=== PATIENT | female | born 1990 | race Caucasian/White ===

== ENCOUNTER 2017-07-28 09:28 | Inpatient (IN) | payer MEDICAID ==
[2017-07-28] MEDS ORDERED: KETOROLAC 30 MG INJ IV (10:05)
[2017-07-28] MEDS: ONDANSETRON 4 MG INJ IV ×2 (10:19→23:33)
[2017-07-28] MEDS: SOD CHLORIDE 0.9% 1,000 ML IV ×2 (10:20→18:23)
[2017-07-28] MEDS: morphine 4 MG/ML VIAL IV (10:20)
[2017-07-28 10:31] LABS: ADD MAN DIFF? NO
[2017-07-28 10:36] LABS: BASOPHIL # 0.1 10^3/ul (0.0-0.1); BASOPHILS % 0.5 % (0.0-2.0); EOSINOPHILS # 0.1 10^3/ul (0.0-0.5); EOSINOPHILS % 0.7 % (0.0-7.0); HEMATOCRIT 43.5 % (37.0-47.0); HEMOGLOBIN 14.7 g/dl (12.0-16.0); LYMPHOCYTES # 1.3 10^3/ul (0.8-2.9); LYMPHOCYTES % 11.9 % (15.0-51.0); MEAN CORPUSCULAR HEMOGLOBIN 30.1 pg (29.0-33.0); MEAN CORPUSCULAR HGB CONC 33.8 g/dl (32.0-37.0); MEAN PLATELET VOLUME 9.8 fl (7.4-10.4); MONOCYTE # 0.1 10^3/ul (0.3-0.9); NEUTROPHIL # 9.2 10^3/ul (1.6-7.5); NEUTROPHILS % 85.4 % (39.0-77.0); PLATELET COUNT 328 10^3/UL (140-415); RED BLOOD COUNT 4.89 10^6/ul (4.20-5.40); RED CELL DISTRIBUTION WIDTH 12.5 % (11.5-14.5)
[2017-07-28 10:36] LABS: WHITE BLOOD COUNT 10.7 10^3/ul (4.8-10.8)
[2017-07-28 10:54] LABS: ALANINE AMINOTRANSFERASE 48 IU/L (13-69); ALBUMIN 4.4 g/dl (3.3-4.9); ALBUMIN/GLOBULIN RATIO 1.29; ALKALINE PHOSPHATASE 110 IU/L (42-121); AMYLASE 73 U/L (11-123); ANION GAP 14 (8-16); ASPARTATE AMINO TRANSFERASE 36 IU/L (15-46); BILIRUBIN,INDIRECT 0.5 mg/dl (0-1.1); BILIRUBIN,TOTAL 0.5 mg/dl (0.2-1.3); BLOOD UREA NITROGEN 12 mg/dl (7-20); CALCIUM 9.2 mg/dl (8.4-10.2); CARBON DIOXIDE 28 mmol/L (21-31); CHLORIDE 102 mmol/L (97-110); CREATININE 0.63 mg/dl (0.44-1.00); GLUCOSE 102 mg/dl (70-220); LIPASE 50 U/L (23-300); POTASSIUM 4.1 mmol/L (3.5-5.1); SODIUM 140 mmol/L (135-144); TOTAL PROTEIN 7.8 g/dl (6.1-8.1)
[2017-07-28 11:01] LABS: INR 0.94; PROTIME 12.7 Sec (11.9-14.9)
[2017-07-28 11:02] LABS: PARTIAL THROMBOPLASTIN TIME 25.8 Sec (25.0-35.0)
[2017-07-28] MEDS: HYDROmorphONE 1 MG/ML SYG IV ×3 (11:09→14:55)
[2017-07-28 11:31] LABS: ADD UMIC YES; UR ASCORBIC ACID 40 mg/dL (NEGATIVE); UR BACTERIA FEW /HPF (NONE SEEN); UR BILIRUBIN (Dip) NEGATIVE (NEGATIVE); UR BLOOD (Dip) 3+ mg/dL (NEGATIVE); UR CLARITY SLIGHTLY CLOUDY (CLEAR); UR COLOR YELLOW (YELLOW); UR GLUCOSE (Dip) NEGATIVE (NEGATIVE); UR KETONES (Dip) NEGATIVE (NEGATIVE); UR LEUKOCYTE ESTERASE (Dip) TRACE Leu/ul (NEGATIVE); UR MUCUS FEW /HPF (NONE SEEN); UR NITRITE (Dip) POSITIVE (NEGATIVE); UR RBC 121 /HPF (0-5); UR SQUAMOUS EPITHELIAL CELL FEW /HPF (FEW); UR TOTAL PROTEIN (Dip) NEGATIVE (NEGATIVE); UR UROBILINOGEN (Dip) NEGATIVE (NEGATIVE); UR WBC 13 /HPF (0-5)
[2017-07-28] MEDS: IOHEXOL 300MG/ML 150 ML BTL (11:57)
[2017-07-28] MEDS: SOD CHLORIDE 0.9% 100 ML (11:57)
[2017-07-28] MEDS ORDERED: CEFTRIAXONE 1 GM/50 ML (PMX) 50 ML IVPB (12:30)
[2017-07-28] MEDS: CEFTRIAXONE 1 GM/50 ML (PMX) 50 ML IVPB (13:39)
[2017-07-28] MEDS ORDERED: ACETAMINOPHEN 325 MG TAB PO (16:00)
[2017-07-28] MEDS ORDERED: ONDANSETRON 4 MG INJ IV (16:00)
[2017-07-28] MEDS ORDERED: NACL 0.9% 3 ML SYG IV (17:00)
[2017-07-28] MEDS: morphine 2 MG INJ IV (19:06)
[2017-07-28] MEDS ORDERED: OXYCODONE/ACETAMINOPHEN (5/325) TAB PO ×2 (21:30)
[2017-07-28] MEDS ORDERED: hydrALAzine 20 MG INJ IV (21:30)
[2017-07-28] MEDS ORDERED: MIDAZOLAM 1 MG/ML 2 ML INJ IV (21:30)
[2017-07-28] MEDS ORDERED: EPHEDrine SULFATE 50 MG/5 ML SYG IV (21:30)
[2017-07-28] MEDS ORDERED: METOCLOPRAMIDE 10 MG INJ IV (21:30)
[2017-07-28] MEDS ORDERED: FENTAnyl 50 MCG/ML VIAL IV ×3 (21:30)
[2017-07-28] MEDS ORDERED: DIPHENHYDRAMINE 50 MG INJ IV (21:30)
[2017-07-28] MEDS ORDERED: GLYCOPYRROLATE 0.4 MG INJ (22:02)
[2017-07-28] MEDS ORDERED: LIDOCAINE 2% (SDV) 5 ML INJ (22:02)
[2017-07-28] MEDS ORDERED: PROPOFOL 20 ML (22:02)
[2017-07-28] MEDS ORDERED: MEPERIDINE 100 MG INJ (22:02)
[2017-07-28] MEDS ORDERED: ROCURONIUM 50 MG INJ (22:02)
[2017-07-28] MEDS ORDERED: SUCCINYLCHOLINE CHLORIDE 100 MG/5 ML SYG IV (22:02)
[2017-07-28] MEDS ORDERED: NEOSTIGMINE 3 MG/3 ML SYRINGE (22:02)
[2017-07-28] MEDS: MEPERIDINE 25 MG INJ IV (23:32)
[2017-07-28] MEDS: LABETALOL HCL 20MG INJ IV (23:35)
[2017-07-29] MEDS: SOD CHLORIDE 0.9% 1,000 ML IV ×4 (00:49→20:26)
[2017-07-29] MEDS: ONDANSETRON 4 MG INJ IV (03:04)
[2017-07-29] MEDS: morphine 2 MG INJ IV ×2 (05:28→20:26)
[2017-07-29 06:31] LABS: WHITE BLOOD COUNT 31.5 10^3/ul (4.8-10.8)
[2017-07-29 06:31] LABS: ABNORMAL IP MESSAGE 1; HEMATOCRIT 36.2 % (37.0-47.0); HEMOGLOBIN 12.1 g/dl (12.0-16.0); MEAN CORPUSCULAR HGB CONC 33.4 g/dl (32.0-37.0); MEAN CORPUSCULAR VOLUME 89.8 fl (82.0-101.0); MEAN PLATELET VOLUME 10.5 fl (7.4-10.4); PLATELET COUNT 259 10^3/UL (140-415); RED BLOOD COUNT 4.03 10^6/ul (4.20-5.40); RED CELL DISTRIBUTION WIDTH 12.9 % (11.5-14.5)
[2017-07-29 07:05] LABS: CHOLESTEROL 141 mg/dl (100-200); HDL CHOLESTEROL 35 mg/dl (33-83); LDL CHOLESTEROL,CALCULATED 76 mg/dl; MAGNESIUM 1.5 mg/dl (1.7-2.5); TRIGLYCERIDES 148 mg/dl (0-149)
[2017-07-29 07:05] LABS: PHOSPHORUS 3.7 mg/dl (2.5-4.9)
[2017-07-29 07:09] LABS: ALANINE AMINOTRANSFERASE 36 IU/L (13-69); ALBUMIN 3.3 g/dl (3.3-4.9); ALKALINE PHOSPHATASE 72 IU/L (42-121); ANION GAP 15 (8-16); ASPARTATE AMINO TRANSFERASE 36 IU/L (15-46); BILIRUBIN,INDIRECT 0.6 mg/dl (0-1.1); BILIRUBIN,TOTAL 0.6 mg/dl (0.2-1.3); BLOOD UREA NITROGEN 11 mg/dl (7-20); CALCIUM 8.6 mg/dl (8.4-10.2); CARBON DIOXIDE 27 mmol/L (21-31); CHLORIDE 102 mmol/L (97-110); CREATININE 0.64 mg/dl (0.44-1.00); GLUCOSE 124 mg/dl (70-220); POTASSIUM 3.7 mmol/L (3.5-5.1); SODIUM 140 mmol/L (135-144); TOTAL PROTEIN 6.3 g/dl (6.1-8.1)
[2017-07-29 07:22] LABS: ADD MAN DIFF? YES; POSITIVE DIFF @See below
[2017-07-29 07:39] LABS: FREE T4 (FREE THYROXINE) 1.01 ng/dl (0.79-2.35)
[2017-07-29 07:50] LABS: HEMOGLOBIN A1C 5.5 % (0-5.9)
[2017-07-29] MEDS: ACETAMINOPHEN 325 MG TAB PO (11:36)
[2017-07-29] MEDS: MAGNESIUM SULFATE 2 GM/50 ML 50 ML IVPB (12:10)
[2017-07-29 12:16] LABS: ANISOCYTOSIS 1+ (0-0); BAND NEUTROPHILS #M 8.1 10^3/ul (0.0-0.6); BAND NEUTROPHILS % (M) 26 % (0-4); EOSINOPHILS % (M) 1 % (0-7); LYMPHOCYTES #M 2.8 10^3/ul (0.8-2.9); LYMPHOCYTES % (M) 9 % (15-51); MONOCYTE #M 3.1 10^3/ul (0.3-0.9); MONOCYTES % (M) 10 % (0-11); PLATELET ESTIMATE NORMAL; POLYCHROMASIA 1+ (0-0); SEG NEUT #M 19.6 10^3/ul (1.7-7.5); SEGMENTED NEUTROPHILS (M) % 54 % (39-77); SMUDGE%M 3 % (0-0); TOXIC GRANULATION 1+ (0-0)
[2017-07-29] MEDS: HYDROCODONE/APAP (5/325) TAB PO ×2 (15:23→23:53)
[2017-07-29] MEDS: CEFTRIAXONE 1 GM/50 ML (PMX) 50 ML IVPB (15:40)
[2017-07-30] MEDS: ONDANSETRON 4 MG INJ IV ×2 (04:35→10:58)
[2017-07-30] MEDS: SOD CHLORIDE 0.9% 1,000 ML IV ×3 (04:37→21:52)
[2017-07-30 06:18] LABS: ADD MAN DIFF? NO
[2017-07-30 06:36] LABS: BASOPHIL # 0.1 10^3/ul (0.0-0.1); BASOPHILS % 0.3 % (0.0-2.0); EOSINOPHILS # 0.2 10^3/ul (0.0-0.5); EOSINOPHILS % 0.8 % (0.0-7.0); HEMATOCRIT 34.2 % (37.0-47.0); HEMOGLOBIN 11.4 g/dl (12.0-16.0); LYMPHOCYTES # 1.8 10^3/ul (0.8-2.9); LYMPHOCYTES % 9.7 % (15.0-51.0); MEAN CORPUSCULAR HEMOGLOBIN 30.2 pg (29.0-33.0); MEAN CORPUSCULAR HGB CONC 33.3 g/dl (32.0-37.0); MEAN CORPUSCULAR VOLUME 90.5 fl (82.0-101.0); MEAN PLATELET VOLUME 10.7 fl (7.4-10.4); MONOCYTE # 1.3 10^3/ul (0.3-0.9); NEUTROPHIL # 15.5 10^3/ul (1.6-7.5); NEUTROPHILS % 81.4 % (39.0-77.0); PLATELET COUNT 215 10^3/UL (140-415); RED BLOOD COUNT 3.78 10^6/ul (4.20-5.40); RED CELL DISTRIBUTION WIDTH 13.3 % (11.5-14.5)
[2017-07-30 06:36] LABS: WHITE BLOOD COUNT 19.1 10^3/ul (4.8-10.8)
[2017-07-30 07:02] LABS: MAGNESIUM 1.9 mg/dl (1.7-2.5)
[2017-07-30 07:02] LABS: PHOSPHORUS 3.1 mg/dl (2.5-4.9)
[2017-07-30 07:37] LABS: ANION GAP 12 (8-16); BLOOD UREA NITROGEN 9 mg/dl (7-20); CALCIUM 8.4 mg/dl (8.4-10.2); CARBON DIOXIDE 28 mmol/L (21-31); CHLORIDE 103 mmol/L (97-110); CREATININE 0.58 mg/dl (0.44-1.00); GLUCOSE 108 mg/dl (70-220); POTASSIUM 3.7 mmol/L (3.5-5.1); SODIUM 139 mmol/L (135-144)
[2017-07-30] MEDS: morphine 2 MG INJ IV ×3 (08:37→23:28)
[2017-07-30] MEDS: CEFTRIAXONE 1 GM/50 ML (PMX) 50 ML IVPB (12:47)
[2017-07-30] MEDS: ALBUTEROL/IPRATROPIUM (NEB) 3 ML AMP HHN (16:15)
[2017-07-30] MEDS: HYDROCODONE/APAP (5/325) TAB PO (17:39)
[2017-07-31] MEDS: SOD CHLORIDE 0.9% 1,000 ML IV ×4 (00:49→15:52)
[2017-07-31] MEDS: HYDROCODONE/APAP (5/325) TAB PO ×3 (02:41→22:24)
[2017-07-31 05:42] LABS: ADD MAN DIFF? NO
[2017-07-31 05:56] LABS: WHITE BLOOD COUNT 13.7 10^3/ul (4.8-10.8)
[2017-07-31 05:56] LABS: BASOPHIL # 0.1 10^3/ul (0.0-0.1); BASOPHILS % 0.5 % (0.0-2.0); EOSINOPHILS # 0.2 10^3/ul (0.0-0.5); EOSINOPHILS % 1.4 % (0.0-7.0); HEMATOCRIT 31.9 % (37.0-47.0); HEMOGLOBIN 10.8 g/dl (12.0-16.0); LYMPHOCYTES # 2.3 10^3/ul (0.8-2.9); MEAN CORPUSCULAR HEMOGLOBIN 30.3 pg (29.0-33.0); MEAN CORPUSCULAR HGB CONC 33.9 g/dl (32.0-37.0); MEAN CORPUSCULAR VOLUME 89.4 fl (82.0-101.0); MEAN PLATELET VOLUME 10.4 fl (7.4-10.4); MONOCYTE # 1.1 10^3/ul (0.3-0.9); MONOCYTES % 7.8 % (0.0-11.0); NEUTROPHIL # 9.9 10^3/ul (1.6-7.5); PLATELET COUNT 226 10^3/UL (140-415); RED BLOOD COUNT 3.57 10^6/ul (4.20-5.40); RED CELL DISTRIBUTION WIDTH 12.7 % (11.5-14.5)
[2017-07-31 06:08] LABS: MAGNESIUM 1.8 mg/dl (1.7-2.5)
[2017-07-31 06:08] LABS: PHOSPHORUS 3.4 mg/dl (2.5-4.9)
[2017-07-31 06:14] LABS: ANION GAP 11 (8-16); BLOOD UREA NITROGEN 6 mg/dl (7-20); CALCIUM 8.4 mg/dl (8.4-10.2); CARBON DIOXIDE 28 mmol/L (21-31); CHLORIDE 104 mmol/L (97-110); CREATININE 0.56 mg/dl (0.44-1.00); GLUCOSE 92 mg/dl (70-220); POTASSIUM 3.7 mmol/L (3.5-5.1); SODIUM 139 mmol/L (135-144)
[2017-07-31] MEDS: ACETAMINOPHEN 325 MG TAB PO (06:37)
[2017-07-31] MEDS: ONDANSETRON 4 MG INJ IV (09:52)
[2017-07-31] MEDS: DOCUSATE SODIUM 100 MG CAP PO ×2 (12:21→20:07)
[2017-07-31] MEDS: ERTAPENEM SODIUM 1 GM in SOD CHLORIDE 0.9% 100 ML IVPB (14:01)
[2017-07-31] MEDS: morphine 2 MG INJ IV (20:07)
[2017-07-31] MEDS ORDERED: MEROPENEM 1 GM/50ML(PMX) 50 ML IVPB (21:00)
[2017-08-01] MEDS: SOD CHLORIDE 0.9% 1,000 ML IV ×5 (01:01→20:51)
[2017-08-01] MEDS: HYDROCODONE/APAP (5/325) TAB PO ×3 (04:21→19:40)
[2017-08-01 06:32] LABS: ADD MAN DIFF? NO
[2017-08-01 06:45] LABS: BASOPHIL # 0.1 10^3/ul (0.0-0.1); BASOPHILS % 0.7 % (0.0-2.0); EOSINOPHILS # 0.4 10^3/ul (0.0-0.5); EOSINOPHILS % 3.6 % (0.0-7.0); HEMATOCRIT 33.5 % (37.0-47.0); HEMOGLOBIN 11.5 g/dl (12.0-16.0); LYMPHOCYTES # 2.6 10^3/ul (0.8-2.9); LYMPHOCYTES % 26.9 % (15.0-51.0); MEAN CORPUSCULAR HEMOGLOBIN 30.3 pg (29.0-33.0); MEAN CORPUSCULAR HGB CONC 34.3 g/dl (32.0-37.0); MEAN CORPUSCULAR VOLUME 88.4 fl (82.0-101.0); MEAN PLATELET VOLUME 10.2 fl (7.4-10.4); MONOCYTES % 9.7 % (0.0-11.0); NEUTROPHIL # 5.4 10^3/ul (1.6-7.5); NEUTROPHILS % 55.2 % (39.0-77.0); PLATELET COUNT 285 10^3/UL (140-415); RED BLOOD COUNT 3.79 10^6/ul (4.20-5.40); RED CELL DISTRIBUTION WIDTH 12.4 % (11.5-14.5)
[2017-08-01 06:45] LABS: WHITE BLOOD COUNT 9.8 10^3/ul (4.8-10.8)
[2017-08-01 07:33] LABS: ANION GAP 15 (8-16); BLOOD UREA NITROGEN 6 mg/dl (7-20); CARBON DIOXIDE 28 mmol/L (21-31); CHLORIDE 102 mmol/L (97-110); CREATININE 0.53 mg/dl (0.44-1.00); GLUCOSE 79 mg/dl (70-220); MAGNESIUM 1.8 mg/dl (1.7-2.5); PHOSPHORUS 4.3 mg/dl (2.5-4.9); POTASSIUM 3.6 mmol/L (3.5-5.1); SODIUM 141 mmol/L (135-144)
[2017-08-01] MEDS: DOCUSATE SODIUM 100 MG CAP PO ×2 (09:29→19:40)
[2017-08-01] MEDS: ALBUTEROL/IPRATROPIUM (NEB) 3 ML AMP HHN (11:57)
[2017-08-01] MEDS: ERTAPENEM SODIUM 1 GM in SOD CHLORIDE 0.9% 100 ML IVPB (14:21)
[2017-08-01] MEDS: ACYCLOVIR 200 MG CAP PO ×2 (18:53→22:40)
[2017-08-02] MEDS: SOD CHLORIDE 0.9% 1,000 ML IV ×5 (00:49→23:57)
[2017-08-02 06:57] LABS: WHITE BLOOD COUNT 9.3 10^3/ul (4.8-10.8)
[2017-08-02 06:57] LABS: ABNORMAL IP MESSAGE 1; HEMATOCRIT 37.4 % (37.0-47.0); HEMOGLOBIN 12.9 g/dl (12.0-16.0); MEAN CORPUSCULAR HEMOGLOBIN 30.3 pg (29.0-33.0); MEAN CORPUSCULAR HGB CONC 34.5 g/dl (32.0-37.0); MEAN CORPUSCULAR VOLUME 87.8 fl (82.0-101.0); MEAN PLATELET VOLUME 9.7 fl (7.4-10.4); PLATELET COUNT 326 10^3/UL (140-415); RED BLOOD COUNT 4.26 10^6/ul (4.20-5.40); RED CELL DISTRIBUTION WIDTH 12.4 % (11.5-14.5)
[2017-08-02 07:06] LABS: ANION GAP 15 (8-16); BLOOD UREA NITROGEN 9 mg/dl (7-20); CALCIUM 9.2 mg/dl (8.4-10.2); CARBON DIOXIDE 29 mmol/L (21-31); CHLORIDE 101 mmol/L (97-110); CREATININE 0.53 mg/dl (0.44-1.00); GLUCOSE 84 mg/dl (70-220); MAGNESIUM 1.9 mg/dl (1.7-2.5); PHOSPHORUS 4.6 mg/dl (2.5-4.9); POTASSIUM 3.8 mmol/L (3.5-5.1); SODIUM 141 mmol/L (135-144)
[2017-08-02 07:22] LABS: POSITIVE DIFF @See below
[2017-08-02 07:23] LABS: ADD MAN DIFF? YES
[2017-08-02] MEDS: DOCUSATE SODIUM 100 MG CAP PO ×2 (08:51→22:24)
[2017-08-02] MEDS: ACYCLOVIR 200 MG CAP PO ×5 (08:51→22:24)
[2017-08-02 09:36] LABS: ANISOCYTOSIS 2+ (0-0); BAND NEUTROPHILS #M 1.3 10^3/ul (0.0-0.6); BAND NEUTROPHILS % (M) 14 % (0-4); EOSINOPHILS % (M) 4 % (0-7); LYMPHOCYTES #M 3.6 10^3/ul (0.8-2.9); LYMPHOCYTES % (M) 39 % (15-51); METAMYELOCYTES %M 1 % (0-0); MICROCYTOSIS 2+ (0-0); MONOCYTE #M 1.3 10^3/ul (0.3-0.9); MONOCYTES % (M) 15 % (0-11); MYELOCYTES #M 0.1 10^3/ul (0.0-0.0); MYELOCYTES % (M) 2 % (0-0); PLATELET ESTIMATE NORMAL; POLYCHROMASIA 1+ (0-0); REACTIVE LYMPHOCYTES% (M) 1 % (0-0); SEG NEUT #M 2.4 10^3/ul (1.7-7.5); SEGMENTED NEUTROPHILS (M) % 25 % (39-77); SMUDGE%M 4 % (0-0)
[2017-08-02] MEDS: ERTAPENEM SODIUM 1 GM in SOD CHLORIDE 0.9% 100 ML IVPB (15:22)
[2017-08-02] MEDS: HYDROCODONE/APAP (5/325) TAB PO (22:27)
[2017-08-03 06:38] LABS: ABNORMAL IP MESSAGE 1; HEMATOCRIT 37.5 % (37.0-47.0); HEMOGLOBIN 12.7 g/dl (12.0-16.0); MEAN CORPUSCULAR HEMOGLOBIN 29.7 pg (29.0-33.0); MEAN CORPUSCULAR HGB CONC 33.9 g/dl (32.0-37.0); MEAN CORPUSCULAR VOLUME 87.6 fl (82.0-101.0); MEAN PLATELET VOLUME 9.3 fl (7.4-10.4); PLATELET COUNT 350 10^3/UL (140-415); RED BLOOD COUNT 4.28 10^6/ul (4.20-5.40); RED CELL DISTRIBUTION WIDTH 12.4 % (11.5-14.5)
[2017-08-03 06:38] LABS: WHITE BLOOD COUNT 11.3 10^3/ul (4.8-10.8)
[2017-08-03 06:45] LABS: POSITIVE DIFF @See below
[2017-08-03 06:46] LABS: ADD MAN DIFF? YES
[2017-08-03] MEDS: SOD CHLORIDE 0.9% 1,000 ML IV ×4 (06:46→20:10)
[2017-08-03 07:03] LABS: ANION GAP 17 (8-16); BLOOD UREA NITROGEN 9 mg/dl (7-20); CALCIUM 8.8 mg/dl (8.4-10.2); CARBON DIOXIDE 26 mmol/L (21-31); CHLORIDE 104 mmol/L (97-110); CREATININE 0.58 mg/dl (0.44-1.00); GLUCOSE 86 mg/dl (70-220); PHOSPHORUS 4.3 mg/dl (2.5-4.9); SODIUM 143 mmol/L (135-144)
[2017-08-03] MEDS: ACYCLOVIR 200 MG CAP PO ×5 (09:18→22:27)
[2017-08-03] MEDS: DOCUSATE SODIUM 100 MG CAP PO ×2 (09:18→20:51)
[2017-08-03 09:25] LABS: ANISOCYTOSIS 1+ (0-0); BAND NEUTROPHILS #M 0.9 10^3/ul (0.0-0.6); BAND NEUTROPHILS % (M) 8 % (0-4); BASOPHIL #M 0.1 10^3/ul (0.0-0.0); BASOPHILS % (M) 1 % (0-2); EOSINOPHILS % (M) 2 % (0-7); GIANT THROMBO% (M) 2 % (0-0); LYMPHOCYTES #M 3.9 10^3/ul (0.8-2.9); LYMPHOCYTES % (M) 35 % (15-51); METAMYELOCYTES #M 0.3 10^3/ul (0.0-0.0); METAMYELOCYTES %M 3 % (0-0); MICROCYTOSIS 1+ (0-0); MONOCYTE #M 1.1 10^3/ul (0.3-0.9); MONOCYTES % (M) 10 % (0-11); MYELOCYTES #M 0.1 10^3/ul (0.0-0.0); MYELOCYTES % (M) 1 % (0-0); PLATELET ESTIMATE NORMAL; POLYCHROMASIA 3+ (0-0); REACTIVE LYMPHOCYTES #M 0.1 10^3/ul (0.0-0.0); REACTIVE LYMPHOCYTES% (M) 1 % (0-0); SEG NEUT #M 4.5 10^3/ul (1.7-7.5); SEGMENTED NEUTROPHILS (M) % 39 % (39-77); SMUDGE%M 3 % (0-0)
[2017-08-03] MEDS: ERTAPENEM SODIUM 1 GM in SOD CHLORIDE 0.9% 100 ML IVPB (14:11)
[2017-08-04] MEDS: SOD CHLORIDE 0.9% 1,000 ML IV ×4 (03:36→21:17)
[2017-08-04] MEDS: ACYCLOVIR 200 MG CAP PO ×5 (08:05→21:10)
[2017-08-04] MEDS: DOCUSATE SODIUM 100 MG CAP PO ×2 (08:06→21:00)
[2017-08-04] MEDS: ERTAPENEM SODIUM 1 GM in SOD CHLORIDE 0.9% 100 ML IVPB (14:22)
[2017-08-04] MEDS ORDERED: FENTAnyl 50 MCG/ML VIAL ×2 (17:26→18:14)
[2017-08-04] MEDS ORDERED: MIDAZOLAM 1 MG/ML 2 ML INJ (17:26)
[2017-08-04] MEDS ORDERED: METOCLOPRAMIDE 10 MG INJ (17:26)
[2017-08-04] MEDS ORDERED: PROPOFOL 20 ML (17:26)
[2017-08-04] MEDS ORDERED: SUCCINYLCHOLINE CHLORIDE 100 MG/5 ML SYG IV (17:54)
[2017-08-04] MEDS ORDERED: ONDANSETRON 4 MG INJ (17:54)
[2017-08-04] MEDS ORDERED: EPHEDrine SULFATE 50 MG/5 ML SYG (17:58)
[2017-08-04] MEDS ORDERED: MEPERIDINE 25 MG INJ IV (18:30)
[2017-08-04] MEDS ORDERED: ONDANSETRON 4 MG INJ IV (18:30)
[2017-08-04] MEDS ORDERED: HYDROmorphONE (0.2 MG/ML) 10ML SYG IV ×2 (18:30)
[2017-08-04] MEDS ORDERED: DIPHENHYDRAMINE 50 MG INJ IV (18:30)
[2017-08-04] MEDS: HYDROmorphONE (0.2 MG/ML) 10ML SYG IV (19:24)
[2017-08-04] MEDS: morphine 2 MG INJ IV (21:14)
[2017-08-05] MEDS: SOD CHLORIDE 0.9% 1,000 ML IV ×3 (00:49→08:39)
[2017-08-05] MEDS: morphine 2 MG INJ IV (00:57)
[2017-08-05 06:03] LABS: ADD MAN DIFF? NO
[2017-08-05 06:11] LABS: BASOPHIL # 0.1 10^3/ul (0.0-0.1); BASOPHILS % 0.9 % (0.0-2.0); EOSINOPHILS # 0.3 10^3/ul (0.0-0.5); EOSINOPHILS % 2.8 % (0.0-7.0); HEMATOCRIT 38.8 % (37.0-47.0); LYMPHOCYTES # 3.2 10^3/ul (0.8-2.9); LYMPHOCYTES % 32.4 % (15.0-51.0); MEAN CORPUSCULAR HEMOGLOBIN 29.6 pg (29.0-33.0); MEAN CORPUSCULAR HGB CONC 33.5 g/dl (32.0-37.0); MEAN CORPUSCULAR VOLUME 88.4 fl (82.0-101.0); MONOCYTE # 0.7 10^3/ul (0.3-0.9); MONOCYTES % 7.3 % (0.0-11.0); NEUTROPHIL # 5.5 10^3/ul (1.6-7.5); NEUTROPHILS % 54.6 % (39.0-77.0); PLATELET COUNT 369 10^3/UL (140-415); RED BLOOD COUNT 4.39 10^6/ul (4.20-5.40); RED CELL DISTRIBUTION WIDTH 12.2 % (11.5-14.5)
[2017-08-05 06:57] LABS: ANION GAP 15 (8-16); BLOOD UREA NITROGEN 8 mg/dl (7-20); CALCIUM 8.6 mg/dl (8.4-10.2); CARBON DIOXIDE 25 mmol/L (21-31); CHLORIDE 104 mmol/L (97-110); CREATININE 0.57 mg/dl (0.44-1.00); GLUCOSE 84 mg/dl (70-220); MAGNESIUM 1.8 mg/dl (1.7-2.5); PHOSPHORUS 5.2 mg/dl (2.5-4.9); POTASSIUM 3.9 mmol/L (3.5-5.1); SODIUM 140 mmol/L (135-144)
[2017-08-05] MEDS: DOCUSATE SODIUM 100 MG CAP PO (08:41)
[2017-08-05] MEDS: ACYCLOVIR 200 MG CAP PO ×2 (08:46→13:59)
[2017-08-05] MEDS: ERTAPENEM SODIUM 1 GM in SOD CHLORIDE 0.9% 100 ML IVPB (14:00)
== END 2017-08-05 17:00 | disposition home or self-care (01) | DRG 691 ==
LOC: MS2 07-31 14:00 → FTE 09:28 → MS2 15:55
PROC: 0T778DZ Dilation of Left Ureter with Intraluminal Device, Via Natural or Artificial Opening Endoscopic (ICD-10-PCS; principal; 2017-07-28 20:30)
PROC: 0TF4XZZ Fragmentation in Left Kidney Pelvis, External Approach (ICD-10-PCS; 2017-07-28 22:12)
PROC: 0TP98DZ Removal of Intraluminal Device from Ureter, Via Natural or Artificial Opening Endoscopic (ICD-10-PCS; 2017-07-28 22:12)
DX: N13.2 Hydronephrosis with renal and ureteral calculous obstruction (principal); E66.9 Obesity, unspecified; N39.0 Urinary tract infection, site not specified; B96.20 Unspecified Escherichia coli [E. coli] as the cause of diseases classified elsewhere; A60.04 Herpesviral vulvovaginitis; J45.909 Unspecified asthma, uncomplicated; Z68.31 Body mass index [BMI] 31.0-31.9, adult
CPT/HCPCS: 74000; 74018; 74176; 74177; 74430; 80048; 80053; 80061; 81001; 82150; 83036; 83690; 83735; 84100; 84439; 84443; 84703; 85025; 85610; 85730; 87086; 87400; 88300; 94640; 96374; 96375; 96376; 99285-25